=== PATIENT | female | born 1980 | race American Indian/Alaskan Native ===

== ENCOUNTER 2017-02-18 11:58 | Emergency (ER) | payer MEDICAID, OTHER ==
[2017-02-18 11:58] VITALS: BMI 46.0
[2017-02-18 12:15] VITALS: BP 150/88; PULSE 98; RESP 20; TEMP 98.3; O2SAT 100
--- NOTE | 2017-02-18 12:27 | ED PDOC ---
Arrival/HPI - General Chief Complaint: Allergic Reaction Time Seen by Provider: 02/18/17 12:07 Historian: Patient - History of Present Illness Narrative History of Present Illness (Text): you were treated in the ED today for taking hydrochlorothiazide today for the first time and you stated you read somewhere that it has penicillin in it which made you anxious and thus you came to the ED, otherwise you were without any new foods/travel/detergents/antibiotics use/rashes/itching/nausea/vomiting/back of throat swelling/change in voice/drooling/headache/dizziness/difficulty breathing/chest pain/abdomen pain/numbness/tingling/loss of limb function/pain with urination/thoughts to harm yourself or others or hallucinations. 02/18/17 12:19 Past Medical History - Travel History Have you recently traveled outside [place] w/in the past 3 mons?: No - Infectious Disease Hx of Infectious Diseases: None - Tetanus Immunization Tetanus Immunization: Unknown - Reproductive Menopause: No - Past Medical History Past Medical History: No Previous - Cardiac Hx Cardiac Disorders: Yes (Heart Murmur) - Pulmonary Hx Respiratory Disorders: No - Neurological Hx Neurological Disorder: No - HEENT Hx HEENT Disorder: No - Renal Hx Renal Disorder: No - Endocrine/Metabolic Hx Diabetes Mellitus Type 2: Yes - Hematological/Oncological Hx Blood Disorders: No - Integumentary Hx Dermatological Disorder: No - Musculoskeletal/Rheumatological Hx Musculoskeletal Disorders: No - Gastrointestinal Hx Gastrointestinal Disorders: No - Genitourinary/Gynecological Hx Genitourinary Disorders: No - Psychiatric Hx Anxiety: Yes Hx Depression: Yes Hx Substance Use: No - Past Surgical History Past Surgical History: No Previous - Surgical History Hx Section: Yes - Anesthesia Hx Anesthesia: Yes Hx Anesthesia Reactions: No Hx Malignant Hyperthermia: No - Suicidal Assessment Feels Threatened In Home Enviroment: No Family/Social History - Physician Review Nursing Documentation Reviewed: Yes Family/Social History: No Known Family HX Smoking Status: Light Smoker < 10 Cigarettes Daily Hx Alcohol Use: Yes Hx Substance Use: No Hx Substance Use Treatment: No Allergies/Home Meds Allergies/Adverse Reactions: Allergies Penicillins Allergy (Verified 11/14/15 11:54) ANAPHYLAXIS shellfish derived Allergy (Verified 02/18/17 12:12) ANAPHYLAXIS shrimp Allergy (Uncoded 11/14/15 11:54) RASH Home Medications: Home Meds Medication Instructions Recorded Confirmed glyBURIDE [Micronase] 5 mg PO BID 02/11/16 02/11/16 Review of Systems - Review of Systems Constitutional: Normal Eyes: Normal ENT: Normal Respiratory: Normal Cardiovascular: Normal Gastrointestinal: Normal Genitourinary Female: Normal Musculoskeletal: Normal Skin: Normal Neurological: Normal Endocrine: Normal Hemo/Lymphatic: Normal Psychiatric: Anxiety, Other (no suicidal/homicidal/hallucinations) Physical Exam Vital Signs Reviewed: Yes Vital Signs Temp Pulse Resp BP Pulse Ox 02/18/17 12:08 98.3 F 98 H 20 150/88 100 02/18/17 11:58 98.3 F 98 H 20 150/88 100 Temperature: Afebrile Blood Pressure: Hypertensive Pulse: Regular Respiratory Rate: Normal Appearance: Positive for: Well-Appearing, Non-Toxic, Comfortable Pain Distress: None Mental Status: Positive for: Alert and Oriented X 3 - Systems Exam Head: Present: Atraumatic, Normocephalic Pupils: Present: PERRL Extroacular Muscles: Present: EOMI Conjunctiva: Present: Normal Ears: Present: Normal Mouth: Present: Moist Mucous Membranes Pharnyx: Present: Normal Nose (External): Present: Atraumatic Nose (Internal): Present: Normal Inspection Neck: Present: Normal Range of Motion Respiratory/Chest: Present: Clear to Auscultation, Good Air Exchange Cardiovascular: Present: Regular Rate and Rhythm Abdomen: No: Distention, Normal Bowel Sounds, Peritoneal Signs, Rebound, Guarding, McBurney's Point Tender, Rovsing's Sign Present, Hernias, Feeding Tubes, Ostomy Tubes, Mass/Organomegaly, Scars, Other Upper Extremity: Present: Normal Inspection Lower Extremity: Present: Normal Inspection Neurological: Present: GCS=15, CN II-XII Intact, Speech Normal Skin: Present: Warm, Normal Color. No: Dry, Rashes, Diaphoretic, Erythematous, Induration, Hot, Cold, Pale, Laceration, Abscess, Abrasion, Other Psychiatric: Present: Alert, Oriented x 3, Normal Insight, Normal Concentration , Anxious, Other (no suicidal/homicidal/hallucinations) Medical Decision Making ED Course and Treatment: you were treated in the ED today for taking hydrochlorothiazide today for the first time and you stated you read somewhere that it has penicillin in it which made you anxious and thus you came to the ED, otherwise you were without any new foods/travel/detergents/antibiotics use/rashes/itching/nausea/vomiting/back of throat swelling/change in voice/drooling/headache/dizziness/difficulty breathing/chest pain/abdomen pain/numbness/tingling/loss of limb function/pain with urination/thoughts to harm yourself or others or hallucinations. you were smiling and laughing, breathing comfortably, alert/oriented, good strength/ sensation, walking easily, no fever temp 98.3, stable heart rate 98, stable breathing rate 20, excellent oxygen level room air 100, elevated blood pressure 150/88 which we recommend repeat 2-3 days primary care office to determine further treatment, you didn't want to take a test and we cautioned for missed diagnosis but you stated have had your tubes tied, counselled to monitor for any allergic reaction type symptoms such as itching/rashes and discharged home. 1. Recommend if any itching then can start benadryl as directed. 2. Recommend followup primary care 2-3 days, to review your symptoms and medications. 3. if any worsening pain, fever, chills, nausea, vomiting, difficulty breathing, loss of limb function, pain with urination, rashes/hives or any medical condition then return to the ED. 02/18/17 12:29 Reassessment Condition: Re-examined, Improved Disposition/Present on Arrival - Present on Arrival Any Indicators Present on Arrival: No History of DVT/PE: No History of Uncontrolled Diabetes: No Urinary Catheter: No History of Decub. Ulcer: No History Surgical Site Infection Following: None - Disposition Have Diagnosis and Disposition been Completed?: Yes Diagnosis: Anxiety Disposition: HOME/ ROUTINE Disposition Time: 12:30 Patient Plan: Discharge Condition: IMPROVED Additional Instructions: you were treated in the ED today for taking hydrochlorothiazide today for the first time and you stated you read somewhere that it has penicillin in it which made you anxious and thus you came to the ED, otherwise you were without any new foods/travel/detergents/antibiotics use/rashes/itching/nausea/vomiting/back of throat swelling/change in voice/drooling/headache/dizziness/difficulty breathing/chest pain/abdomen pain/numbness/tingling/loss of limb function/pain with urination/thoughts to harm yourself or others or hallucinations. you were smiling and laughing, breathing comfortably, alert/oriented, good strength/ sensation, walking easily, no fever temp 98.3, stable heart rate 98, stable breathing rate 20, excellent oxygen level room air 100, elevated blood pressure 150/88 which we recommend repeat 2-3 days primary care office to determine further treatment, you didn't want to take a test and we cautioned for missed diagnosis but you stated have had your tubes tied, counselled to monitor for any allergic reaction type symptoms such as itching/rashes and discharged home. 1. Recommend if any itching then can start benadryl as directed. 2. Recommend followup primary care 2-3 days, to review your symptoms and medications. 3. if any worsening pain, fever, chills, nausea, vomiting, difficulty breathing, loss of limb function, pain with urination, rashes/hives or any medical condition then return to the ED. Prescriptions: DiphenhydrAMINE [Benadryl] 25 mg PO Q8 PRN #10 cap PRN Reason: rash/itching
== END 2017-02-18 12:49 | disposition home or self-care (01) ==
LOC: ED 11:58
DX: F41.9 Anxiety disorder, unspecified (principal); E11.9 Type 2 diabetes mellitus without complications; F17.210 Nicotine dependence, cigarettes, uncomplicated; Z88.0 Allergy status to penicillin

== ENCOUNTER 2017-04-08 02:14 | Emergency (ER) | payer MEDICAID ==
[2017-04-08 02:15] VITALS: BMI 46.0
[2017-04-08 02:32] VITALS: RESP 18; TEMP 98.1
[2017-04-08] MEDS ORDERED: EPINEPHrine 1 mg/ml (1:1000) Inj SC STA (02:53)
--- NOTE | 2017-04-08 03:34 | ED PDOC ---
Arrival/HPI - General Chief Complaint: Allergic Reaction Time Seen by Provider: 04/08/17 02:47 Historian: Patient - History of Present Illness Narrative History of Present Illness (Text): 04/08/17 02:54 37 year old female, whose past medical history includes anxiety and diabetes, presents to the Emergency department for evaluation following onset of hives and itchiness after exposing herself to shrimp. Patient has a known fish allergy. Patient states she took a few dosage of Benadryl after eating with minimal relief. Patient denies any fevers, chills, chest pain, shortness of breath, abdominal pain, nausea, vomiting, diarrhea, back pain, neck pain, urinary/bowel changes, headache, dizziness, or any other complaint. PMD: Dr. Nicanor Akhtar Symptom Onset: Sudden Symptom Course: Unchanged Activities at Onset: Light Context: Home Past Medical History - Provider Review Nursing Documentation Reviewed: Yes - Infectious Disease Hx of Infectious Diseases: None - Tetanus Immunization Tetanus Immunization: Unknown - Past Medical History Past Medical History: No Previous - Cardiac Hx Cardiac Disorders: Yes (Heart Murmur) - Pulmonary Hx Respiratory Disorders: No - Neurological Hx Neurological Disorder: No - HEENT Hx HEENT Disorder: No - Renal Hx Renal Disorder: No - Endocrine/Metabolic Hx Diabetes Mellitus Type 2: Yes - Hematological/Oncological Hx Blood Disorders: No - Integumentary Hx Dermatological Disorder: No - Musculoskeletal/Rheumatological Hx Musculoskeletal Disorders: No - Gastrointestinal Hx Gastrointestinal Disorders: No - Genitourinary/Gynecological Hx Genitourinary Disorders: No - Psychiatric Hx Anxiety: Yes Hx Depression: Yes Hx Substance Use: No - Past Surgical History Past Surgical History: No Previous - Surgical History Hx Section: Yes - Anesthesia Hx Anesthesia: Yes Hx Anesthesia Reactions: No Hx Malignant Hyperthermia: No - Suicidal Assessment Feels Threatened In Home Enviroment: No Family/Social History - Physician Review Nursing Documentation Reviewed: Yes Family/Social History: No Known Family HX Smoking Status: Light Smoker < 10 Cigarettes Daily Hx Alcohol Use: Yes Hx Substance Use: No Hx Substance Use Treatment: No Allergies/Home Meds Allergies/Adverse Reactions: Allergies Penicillins Allergy (Verified 11/14/15 11:54) ANAPHYLAXIS shellfish derived Allergy (Verified 02/18/17 12:12) ANAPHYLAXIS shrimp Allergy (Uncoded 11/14/15 11:54) RASH Home Medications: Home Meds Medication Instructions Recorded Confirmed glyBURIDE [Micronase] 5 mg PO BID 02/11/16 04/08/17 Review of Systems - Physician Review All systems were reviewed & negative as marked: Yes - Review of Systems Constitutional: absent: Fevers, Other (Chills) Respiratory: absent: SOB Cardiovascular: absent: Chest Pain Gastrointestinal: absent: Abdominal Pain, Diarrhea, Nausea, Vomiting Genitourinary Female: absent: Dysuria, Frequency, Hematuria Musculoskeletal: absent: Back Pain, Neck Pain Skin: Other (hives and itchiness) Neurological: absent: Headache, Dizziness Physical Exam Vital Signs Reviewed: Yes Vital Signs Temp Pulse Resp Pulse Ox 04/08/17 02:25 98.1 F 96 H 18 99 Temperature: Afebrile Pulse: Regular Respiratory Rate: Normal Appearance: Positive for: Well-Appearing, Non-Toxic, Comfortable Pain Distress: None Mental Status: Positive for: Alert and Oriented X 3 - Systems Exam Head: Present: Atraumatic, Normocephalic Pupils: Present: PERRL Extroacular Muscles: Present: EOMI Conjunctiva: Present: Normal Mouth: Present: Moist Mucous Membranes Pharnyx: Present: Normal Neck: Present: Normal Range of Motion Respiratory/Chest: Present: Clear to Auscultation, Good Air Exchange. No: Respiratory Distress, Accessory Muscle Use Cardiovascular: Present: Regular Rate and Rhythm, Normal S1, S2. No: Murmurs Abdomen: Present: Normal Bowel Sounds. No: Tenderness, Distention, Peritoneal Signs Back: Present: Normal Inspection Upper Extremity: Present: Normal Inspection. No: Cyanosis, Edema Lower Extremity: Present: Normal Inspection. No: Edema Neurological: Present: GCS=15, CN II-XII Intact, Speech Normal Skin: Present: Warm, Dry, Other (scattered urticaria areas to the arms, chest, and neck.) Psychiatric: Present: Alert, Oriented x 3, Normal Insight, Normal Concentration Medical Decision Making ED Course and Treatment: 04/08/17 02:54 Impression: 37 year old female presents complaining of hives and itchiness s/p eating shrimp. Patient as a known fish allergy. Plan: -- Epinephrine -- Solu-Medrol -- Reassess and disposition Prior Visits: Notes and results from previous visits were reviewed. Patient was last seen in the emergency department on 02/18/17 presents for taking hydrochlorothiazide today with known Penicillin allergy. Patient was discharged. Progress Notes: 04/08/17 05:00 On re-evaluation, patient presents systematic relief follow by medication given in the Emergency department. I have discussed the results and plan with the patient, who expresses understanding. Patient in agreement with plan to be discharged home. Patient is stable for discharge. Patient was instructed to follow up with physician or return if symptoms worsen or new concerning symptoms arise. - Medication Orders Current Medication Orders: Discontinued Medications Epinephrine HCl (Epinephrine) 0.3 mg SC STAT STA Stop: 04/08/17 02:54 Last Admin: 04/08/17 03:04 Dose: 0.3 mg Subcutaneous Administrations Document 04/08/17 03:04 JOL (Rec: 04/08/17 03:04 JOL [id number]) Injection Site MAR Injection Site Right Arm Charges for Administration # of Subcutaneous Administrations 1 Methylprednisolone (Solu-Medrol) 125 mg IVP ONCE ONE Stop: 04/08/17 02:55 Last Admin: 04/08/17 03:03 Dose: 125 mg IVP Administration Document 04/08/17 03:03 JOL (Rec: 04/08/17 03:04 JOL [id number]) Charges for Administration # of IVP Administrations 1 - Scribe Statement The provider has reviewed the documentation as recorded by the Wilton Temple Provider Scribe Attestation: All medical record entries made by the Scribjamal were at my direction and personally dictated by me. I have reviewed the chart and agree that the record accurately reflects my personal performance of the history, physical exam, medical decision making, and the department course for this patient. I have also personally directed, reviewed, and agree with the discharge instructions and disposition. Disposition/Present on Arrival - Present on Arrival Any Indicators Present on Arrival: No History of DVT/PE: No History of Uncontrolled Diabetes: No Urinary Catheter: No History of Decub. Ulcer: No History Surgical Site Infection Following: None - Disposition Have Diagnosis and Disposition been Completed?: Yes Diagnosis: Allergic reaction, Food allergy Disposition: HOME/ ROUTINE Disposition Time: 04:57 Patient Plan: Discharge Patient Problems: Current Active Problems Problem Status Onset Allergic reaction Acute Food allergy Acute Condition: GOOD Discharge Instructions (ExitCare): Urticaria (ED), Food Allergy (ED) Additional Instructions: Take meds as prescribed/avoid exposure to fish/shellfish /follow up with your doctor this week Prescriptions: DiphenhydrAMINE [Benadryl] 50 mg PO Q6 PRN #24 cap PRN Reason: Itching / Pruritus predniSONE [Prednisone] 40 mg PO DAILY #10 tab Referrals: Lindsay Akhtar MD [Primary Care Provider] - Follow up with primary Forms: [employer] ([place]ian)
[2017-04-08 05:47] VITALS: O2SAT 100
[2017-04-08 05:48] VITALS: BP 132/84; PULSE 80
== END 2017-04-08 05:20 | disposition home or self-care (01) ==
LOC: ED 02:14
DX: L27.2 Dermatitis due to ingested food (principal)
CPT/HCPCS: 96372; 96374; 99284; J0171; J2930

== ENCOUNTER 2017-07-21 20:55 | Emergency (ER) | payer MEDICAID ==
[2017-07-21 21:11] VITALS: O2SAT 100; BMI 44.8
--- NOTE | 2017-07-21 21:50 | ED PDOC ---
Arrival/HPI - General Chief Complaint: Anxiety Time Seen by Provider: 07/21/17 21:08 Historian: Patient - History of Present Illness Narrative History of Present Illness (Text): 07/21/17 21:47 37yo female with PMhx of NIDDM who was bib the EMS for anxiety. Patient report tingling to her right arm, palpation. States she feels "off". she report remote history of similar symptoms with her previous anxiety episodes. states she have not taken anxiolytics for a while, because she didn't need it. She notes that she is currently under severe stress. States she her friends lost loved ones this week and she score a B in her school, exam, which made her unhappy. she however denies chest pain, SOB, diaphoresis, LE edema, calf pain, dizziness, focal weakness, headache, slurred speech, SI/HI, hallucination, any other complaint. Past Medical History - Provider Review Nursing Documentation Reviewed: Yes - Infectious Disease Hx of Infectious Diseases: None - Tetanus Immunization Tetanus Immunization: Unknown - Past Medical History Past Medical History: No Previous - Cardiac Hx Cardiac Disorders: Yes (Heart Murmur) - Pulmonary Hx Respiratory Disorders: No - Neurological Hx Neurological Disorder: No - HEENT Hx HEENT Disorder: No - Renal Hx Renal Disorder: No - Endocrine/Metabolic Hx Diabetes Mellitus Type 2: Yes - Hematological/Oncological Hx Blood Disorders: No - Integumentary Hx Dermatological Disorder: No - Musculoskeletal/Rheumatological Hx Musculoskeletal Disorders: No - Gastrointestinal Hx Gastrointestinal Disorders: No - Genitourinary/Gynecological Hx Genitourinary Disorders: No - Psychiatric Hx Anxiety: Yes Hx Depression: Yes Hx Substance Use: No - Past Surgical History Past Surgical History: No Previous - Surgical History Hx Section: Yes - Anesthesia Hx Anesthesia: Yes Hx Anesthesia Reactions: No Hx Malignant Hyperthermia: No - Suicidal Assessment Feels Threatened In Home Enviroment: No Family/Social History - Physician Review Nursing Documentation Reviewed: Yes Family/Social History: Unknown Family HX Smoking Status: Light Smoker < 10 Cigarettes Daily Hx Alcohol Use: Yes Hx Substance Use: No Hx Substance Use Treatment: No Allergies/Home Meds Allergies/Adverse Reactions: Allergies Penicillins Allergy (Verified 07/21/17 20:57) ANAPHYLAXIS shellfish derived Allergy (Verified 07/21/17 20:57) ANAPHYLAXIS shrimp Allergy (Uncoded 07/21/17 20:57) RASH Home Medications: Home Meds Medication Instructions Recorded Confirmed glyBURIDE [Micronase] 5 mg PO DAILY 07/21/17 07/21/17 metFORMIN [glucOPHAGE] 500 mg PO DAILY 07/21/17 07/21/17 Review of Systems - Physician Review All systems were reviewed & negative as marked: Yes - Review of Systems Constitutional: Normal Eyes: Normal ENT: Normal Respiratory: Normal Cardiovascular: Normal Gastrointestinal: Normal Genitourinary Female: Normal Musculoskeletal: Normal Skin: Normal Neurological: Normal Endocrine: Normal Hemo/Lymphatic: Normal Psychiatric: Anxiety. absent: Depression, Suicidal Ideation Physical Exam Vital Signs Reviewed: Yes Vital Signs Temp Pulse Resp BP Pulse Ox 07/21/17 21:05 98.6 F 94 H 18 148/89 100 Temperature: Afebrile Blood Pressure: Normal Pulse: Regular Respiratory Rate: Normal Appearance: Positive for: Well-Appearing, Non-Toxic, Comfortable, Other (Morbid obese) Pain Distress: None Mental Status: Positive for: Alert and Oriented X 3 - Systems Exam Head: Present: Atraumatic, Normocephalic Pupils: Present: PERRL Extroacular Muscles: Present: EOMI Conjunctiva: Present: Normal Mouth: Present: Moist Mucous Membranes Neck: Present: Normal Range of Motion Respiratory/Chest: Present: Clear to Auscultation, Good Air Exchange. No: Respiratory Distress, Accessory Muscle Use Cardiovascular: Present: Regular Rate and Rhythm, Normal S1, S2. No: Murmurs Abdomen: No: Tenderness, Distention, Peritoneal Signs Back: Present: Normal Inspection Upper Extremity: Present: Normal Inspection. No: Cyanosis, Edema Lower Extremity: Present: Normal Inspection. No: Edema Neurological: Present: GCS=15, CN II-XII Intact, Speech Normal Skin: Present: Warm, Dry, Normal Color. No: Rashes Psychiatric: Present: Alert, Oriented x 3, Normal Insight, Normal Concentration Medical Decision Making ED Course and Treatment: 07/21/17 23:45 Pt in ED for anxiety. Labs was ordered and reviewed. BS of 310 was noted. No AG. Pt noted that she is not complaint with her medication. States the last time she took her oral hypoglycemics was a week ago. She denies polyuria/dipsia/phagia, dizziness, nausea, vomiting, abdominal pain in ED. Her BS improved to 200 on re evaluation after hydration and insulin was given. She also states her anxiety symptoms resolved with Xanax in ED. EKG NSR @95bpm. CXR NAD Result was DW the pt. and she was strongly advised to take medication as was directed. Referred to her PMD. - Lab Interpretations Lab Results: 07/21/17 21:51 07/21/17 21:51 Lab Results 07/21/17 23:28: POC Glucose (mg/dL) 200 H 07/21/17 21:51: PT 11.4, INR 1.00, APTT 27.1 07/21/17 21:51: Sodium 142, Potassium 3.9, Chloride 104, Carbon Dioxide 26, Anion Gap 16, BUN 11, Creatinine 0.5 L, Est GFR ( Amer) > 60, Est GFR ( Non-Af Amer) > 60, Random Glucose 310 H* D, Calcium 9.4, Magnesium 1.9, Total Bilirubin 0.3, AST 24, ALT 25, Alkaline Phosphatase 92, Lactate Dehydrogenase 413, Total Creatine Kinase 132, Troponin I < 0.01, Total Protein 7.7, Albumin 4.4, Globulin 3.2, Albumin/Globulin Ratio 1.4 07/21/17 21:51: Urine Color Yellow, Urine Appearance Clear, Urine pH 6.0, Ur Specific Sims 1.025, Urine Protein Negative, Urine Glucose (UA) >=1000, Urine Ketones Negative, Urine Blood Negative, Urine Nitrate Negative, Urine Bilirubin Negative, Urine Urobilinogen 0.2, Ur Leukocyte Esterase Negative 07/21/17 21:51: WBC 5.2 D, RBC 5.11, Hgb 12.9, Hct 39.5, MCV 77.3 L, MCH 25.2, MCHC 32.7, RDW 16.4 H, Plt Count 324, MPV 9.5, Gran % 43.9 L, Lymph % (Auto) 45.7 H, Frio % (Auto) 7.3 H, Eos % (Auto) 2.7, Baso % (Auto) 0.4, Gran # 2.28, Lymph # (Auto) 2.4, Frio # (Auto) 0.4, Eos # (Auto) 0.1, Baso # (Auto) 0.02 - RAD Interpretation Radiology Orders: 07/21/17 21:24 CHEST PORTABLE [RAD] Stat - Medication Orders Current Medication Orders: Discontinued Medications Alprazolam (Xanax) 0.25 mg PO STAT STA PRN Reason: Protocol Stop: 07/21/17 22:05 Last Admin: 07/21/17 22:12 Dose: 0.25 mg Sodium Chloride (Sodium Chloride 0.9%) 1,000 mls @ 999 mls/hr IV .Q1H1M STA Stop: 07/21/17 23:20 Last Admin: 07/21/17 22:29 Dose: 999 mls/hr eMAR Start Stop Document 07/21/17 22:29 IT (Rec: 07/21/17 22:30 IT [id number]) Intravenous Solution Start Date 07/21/17 Start Time 22:30 End Date 07/21/17 Insulin Human Regular (Humulin R) 6 units IVP ONCE STA Stop: 07/21/17 22:21 Last Admin: 07/21/17 22:29 Dose: 6 units MAR Blood Glucose Document 07/21/17 22:29 IT (Rec: 07/21/17 22:29 IT [id number]) Blood Glucose Finger Stick Blood Glucose (70-120) 310 IVP Administration Document 07/21/17 22:29 IT (Rec: 07/21/17 22:29 IT [id number]) Charges for Administration # of IVP Administrations 1 Disposition/Present on Arrival - Present on Arrival Any Indicators Present on Arrival: No History of DVT/PE: No History of Uncontrolled Diabetes: No Urinary Catheter: No History of Decub. Ulcer: No History Surgical Site Infection Following: None - Disposition Have Diagnosis and Disposition been Completed?: Yes Diagnosis: Anxiety, Hyperglycemia Disposition: HOME/ ROUTINE Disposition Time: 23:35 Patient Plan: Discharge Patient Problems: Current Active Problems Problem Status Onset Anxiety Acute Hyperglycemia Acute Condition: STABLE Discharge Instructions (ExitCare): Hyperglycemia, Adult, Anxiety, Adult (DC) Additional Instructions: Follow up with your Doctor Take your diabetes medication as directed Return to ED for any new or worsening symptoms Referrals: Shira Garnett, [Primary Care Provider] - Follow up with primary [facility] [place] [Outside] - Follow up with primary Forms: [employer] (Maldivian)
[2017-07-21 21:54] LABS: URINE BILIRUBIN NEGATIVE (NEGATIVE); URINE BLOOD NEGATIVE (NEGATIVE); URINE GLUCOSE (UA) >=1000 mg/dL (NEGATIVE); URINE LEUKOCYTE ESTERASE NEGATIVE Leu/uL (NEGATIVE); URINE PROTEIN NEGATIVE mg/dL (<30 mg/dL); URINE UROBILINOGEN 0.2 E.U./dL (<1 E.U./dL)
[2017-07-21 22:06] LABS: BASO # 0.02 K/mm3 (0.0-2.0); BASO % 0.4 % (0.0-3.0); EOS # 0.1 (0.0-0.7); EOS % 2.7 % (1.5-5.0); GRAN # 2.28 (1.4-6.5); GRAN % 43.9 % (50.0-68.0); HEMOGLOBIN 12.9 g/dL (12.0-16.0); LYMPH # 2.4 (1.2-3.4); LYMPH % 45.7 % (22.0-35.0); MEAN CELL VOLUME 77.3 fl (80.0-105.0); MEAN CORPUSCULAR HEMOGLOBIN 25.2 pg (25.0-35.0); MEAN CORPUSCULAR HGB CONC 32.7 g/dl (31.0-37.0); MEAN PLATELET VOLUME 9.5 fl (7.0-11.0); MONO # 0.4 (0.1-0.6); MONO % 7.3 % (1.0-6.0); RBC 5.11 10^6/uL (3.5-6.1); RED CELL DISTRIBUTION WIDTH 16.4 % (11.5-14.5); WHITE BLOOD COUNT 5.2 10^3/ul (4.5-11.0)
[2017-07-21 22:09] LABS: URINE APPEARANCE CLEAR (CLEAR); URINE COLOR YELLOW (YELLOW)
[2017-07-21 22:11] LABS: PARTIAL THROMBOPLASTIN TIME 27.1 Seconds (25.1-36.5); PROTHROMBIN TIME 11.4 SECONDS (9.4-12.5)
[2017-07-21 22:16] LABS: TROPONIN I < 0.01 ng/mL
[2017-07-21 22:19] LABS: ALB/GLOB RATIO 1.4 (1.1-1.8); ALBUMIN 4.4 g/dL (3.0-4.8); ALT/SGPT 25 U/L (7-56); AST/SGOT 24 U/L (14-36); BLOOD UREA NITROGEN 11 mg/dL (7-21); CALCIUM 9.4 mg/dL (8.4-10.5); GFR AFRICAN-AMERICAN > 60; GFR NON-AFRICAN AMERICAN > 60
[2017-07-21] MEDS ORDERED: Insulin Regular 1 UNITS/0.01 ML ML IVP STA (22:20)
[2017-07-21] MEDS ORDERED: Sodium Chloride 0.9% 1,000 ML IV STA (22:20)
[2017-07-22 00:12] VITALS: BP 129/79; PULSE 82; RESP 17; TEMP 98.1
--- NOTE | 2017-07-22 08:58 | RAD ---
HISTORY: palpitation COMPARISON: 05/11/2014 FINDINGS: LUNGS: No active pulmonary disease. PLEURA: No significant pleural effusion identified, no pneumothorax apparent. CARDIOVASCULAR: Normal. OSSEOUS STRUCTURES: No significant abnormalities. VISUALIZED UPPER ABDOMEN: Normal. OTHER FINDINGS: None. IMPRESSION: No active disease.
--- NOTE | 2017-07-22 09:50 | CARD ---
APPROVED REPORT EKG Measurement Heart [id number] <Conclusion> Normal sinus rhythm PRWP NSSTW changes No change
== END 2017-07-21 23:55 | disposition home or self-care (01) ==
LOC: ED 20:55
DX: F41.9 Anxiety disorder, unspecified (principal); E11.65 Type 2 diabetes mellitus with hyperglycemia; F17.210 Nicotine dependence, cigarettes, uncomplicated
CPT/HCPCS: 71045; 80053; 81003; 82550; 82948; 83615; 83735; 84484; 85025; 85610; 85730; 93005; 96374; 99283; J7040

== ENCOUNTER 2017-11-03 18:09 | Emergency (ER) | payer MEDICAID ==
[2017-11-03 18:10] VITALS: BMI 46.0
[2017-11-03 18:27] VITALS: RESP 18; O2SAT 99
[2017-11-03] MEDS ORDERED: Apap-Butalbital-Caffeine 325-50-40mg Tab PO STA (18:37)
--- NOTE | 2017-11-03 18:40 | ED PDOC ---
Arrival/HPI - General Chief Complaint: Headache Time Seen by Provider: 11/03/17 18:15 Historian: Patient - History of Present Illness Narrative History of Present Illness (Text): 11/03/17 18:39 37 year old female, whose past medical history includes anxiety and diabetes, presents to the Emergency department for evaluation of headache. Patient states she has a pressure headache running down the front of her face. Patient also states her nose and body feel sore. Patient denies any fever, chills, dizziness, chest pain, shortness of breath, cough, abdominal pain, nausea, vomiting, diarrhea, back pain, neck pain, urinary/bowel changes, or any other complaint. Time/Duration: Prior to Arrival Symptom Course: Unchanged Quality: Pressure Past Medical History - Provider Review Nursing Documentation Reviewed: Yes - Infectious Disease Hx of Infectious Diseases: None - Tetanus Immunization Tetanus Immunization: Unknown - Past Medical History Past Medical History: No Previous - Cardiac Hx Cardiac Disorders: Yes Hx Heart Murmur: Yes - Pulmonary Hx Respiratory Disorders: No - Neurological Hx Neurological Disorder: No - HEENT Hx HEENT Disorder: No - Renal Hx Renal Disorder: No - Endocrine/Metabolic Hx Diabetes Mellitus Type 2: Yes - Hematological/Oncological Hx Blood Disorders: No - Integumentary Hx Dermatological Disorder: No - Musculoskeletal/Rheumatological Hx Musculoskeletal Disorders: No - Gastrointestinal Hx Gastrointestinal Disorders: No - Genitourinary/Gynecological Hx Genitourinary Disorders: No - Psychiatric Hx Anxiety: Yes Hx Depression: Yes Hx Substance Use: No - Past Surgical History Past Surgical History: No Previous - Surgical History Hx Section: Yes (x1) - Anesthesia Hx Anesthesia: Yes Hx Anesthesia Reactions: No Hx Malignant Hyperthermia: No - Suicidal Assessment Feels Threatened In Home Enviroment: No Family/Social History - Physician Review Nursing Documentation Reviewed: Yes Family/Social History: No Known Family HX Smoking Status: Light Smoker < 10 Cigarettes Daily Hx Alcohol Use: Yes Hx Substance Use: No Hx Substance Use Treatment: No Allergies/Home Meds Allergies/Adverse Reactions: Allergies Penicillins Allergy (Verified 11/03/17 18:28) ANAPHYLAXIS shellfish derived Allergy (Verified 11/03/17 18:28) ANAPHYLAXIS shrimp Allergy (Uncoded 11/03/17 18:28) RASH Home Medications: Home Meds Medication Instructions Recorded Confirmed glyBURIDE [Micronase] 5 mg PO DAILY 07/21/17 11/03/17 metFORMIN [glucOPHAGE] 500 mg PO DAILY 07/21/17 11/03/17 Review of Systems - Physician Review All systems were reviewed & negative as marked: Yes - Review of Systems Constitutional: Normal. absent: Fevers, Night Sweats Eyes: Normal ENT: Normal Respiratory: Normal. absent: SOB, Cough Cardiovascular: Normal. absent: Chest Pain Gastrointestinal: Normal. absent: Abdominal Pain, Diarrhea, Nausea, Vomiting Genitourinary Female: Normal. absent: Urine Output Changes Musculoskeletal: Normal. absent: Back Pain, Neck Pain Skin: Normal Neurological: Headache. absent: Dizziness Endocrine: Normal Hemo/Lymphatic: Normal Psychiatric: Normal Physical Exam Vital Signs Reviewed: Yes Vital Signs Temp Pulse Resp BP Pulse Ox 11/03/17 18:57 98.3 F 78 18 120/79 99 11/03/17 18:27 97.8 F 85 18 140/77 99 Temperature: Afebrile Blood Pressure: Normal Pulse: Regular Respiratory Rate: Normal Appearance: Positive for: Well-Appearing, Non-Toxic, Comfortable Pain Distress: None Mental Status: Positive for: Alert and Oriented X 3 - Systems Exam Head: Present: Atraumatic, Normocephalic Pupils: Present: PERRL Extroacular Muscles: Present: EOMI Conjunctiva: Present: Normal Mouth: Present: Moist Mucous Membranes Neck: Present: Normal Range of Motion Respiratory/Chest: Present: Clear to Auscultation, Good Air Exchange. No: Respiratory Distress, Accessory Muscle Use Cardiovascular: Present: Regular Rate and Rhythm, Normal S1, S2. No: Murmurs Abdomen: No: Tenderness, Distention, Peritoneal Signs Back: Present: Normal Inspection Upper Extremity: Present: Normal Inspection. No: Cyanosis, Edema Lower Extremity: Present: Normal Inspection. No: Edema Neurological: Present: GCS=15, CN II-XII Intact, Speech Normal Skin: Present: Warm, Dry, Normal Color. No: Rashes Psychiatric: Present: Alert, Oriented x 3, Normal Insight, Normal Concentration Medical Decision Making ED Course and Treatment: 11/03/17 18:41 Impression: 37 year old female presents to the emergency department with headache. Plan: -- Fioricet -- Labs -- Reassess and disposition Prior Visits: Notes and results from previous visits were reviewed. Progress Notes: 11/03/17 18:42 Patient was offered lab tests and imaging. Patient declined, stating she wants to take child home. 11/04/17 07:25 no thunderclap featuress, pt well appearing neuro intact. suspect sinus hernandez. declines imaging w/u in er due to child care giver reuqests rx and dc home. return precations advised. - Medication Orders Current Medication Orders: Discontinued Medications Acetaminophen/Butalbital/Caffeine (Fioricet) 1 tab PO STAT STA Stop: 11/03/17 18:38 Last Admin: 11/03/17 18:49 Dose: 1 tab MAR Pain Assessment Document 11/03/17 18:49 EWO (Rec: 11/03/17 18:50 EWO [id number]) Pain Reassessment Is this a pain reassessment? No Sleep Is patient sleeping during reassessment? 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 I have reviewed the chart and agree that the record accurately reflects my personal performance of the history, physical exam, medical decision making, and the department course for this patient. I have also personally directed, reviewed, and agree with the discharge instructions and disposition. Disposition/Present on Arrival - Present on Arrival Any Indicators Present on Arrival: No History of DVT/PE: No History of Uncontrolled Diabetes: No Urinary Catheter: No History of Decub. Ulcer: No History Surgical Site Infection Following: None - Disposition Have Diagnosis and Disposition been Completed?: Yes Diagnosis: Headache, Sinus congestion Disposition: HOME/ ROUTINE Disposition Time: 06:00 Condition: STABLE Discharge Instructions (ExitCare): Sinus Headache (DC), Headache, Adult (DC) Additional Instructions: you are declining lab eval and imaging. you are able to return to er with worsening symptoms or concerns Prescriptions: Acetaminophen/Butalbital/Caf [Fioricet] 1 tab PO Q8 PRN #20 tab PRN Reason: Headache Fluticasone Propionate [Flonase] 1 spr OMAYRA DAILY #1 bottle Referrals: Lindsay Akhtar MD [Primary Care Provider] - Follow up with primary Forms: [employer] (Bengali)
[2017-11-03 18:57] VITALS: BP 120/79; PULSE 78; TEMP 98.3
== END 2017-11-03 18:57 | disposition home or self-care (01) ==
LOC: ED 18:09
DX: R51 Headache (principal); R09.81 Nasal congestion; E11.9 Type 2 diabetes mellitus without complications; F17.210 Nicotine dependence, cigarettes, uncomplicated

== ENCOUNTER 2018-04-03 13:33 | Emergency (ER) | payer MEDICAID ==
[2018-04-03 13:52] VITALS: BMI 40.4
[2018-04-03 13:56] VITALS: TEMP 98.7
[2018-04-03 14:47] LABS: BASO # 0.02 K/mm3 (0.0-2.0); BASO % 0.4 % (0.0-3.0); EOS # 0.1 (0.0-0.7); EOS % 1.8 % (1.5-5.0); GRAN # 2.87 (1.4-6.5); GRAN % 50.3 % (50.0-68.0); HEMOGLOBIN 11.9 g/dL (12.0-16.0); LYMPH # 2.4 (1.2-3.4); LYMPH % 42.2 % (22.0-35.0); MEAN CELL VOLUME 79.8 fl (80.0-105.0); MEAN CORPUSCULAR HEMOGLOBIN 25.8 pg (25.0-35.0); MEAN CORPUSCULAR HGB CONC 32.3 g/dl (31.0-37.0); MEAN PLATELET VOLUME 9.3 fl (7.0-11.0); MONO # 0.3 (0.1-0.6); MONO % 5.3 % (1.0-6.0); RBC 4.61 10^6/uL (3.5-6.1); RED CELL DISTRIBUTION WIDTH 14.7 % (11.5-14.5); WHITE BLOOD COUNT 5.7 10^3/uL (4.5-11.0)
[2018-04-03 14:50] LABS: ALB/GLOB RATIO 1.1 (1.1-1.8); ALBUMIN 4.2 g/dL (3.0-4.8); BLOOD UREA NITROGEN 8 mg/dL (7-21); CALCIUM 9.1 mg/dL (8.4-10.5); GFR NON-AFRICAN AMERICAN > 60
[2018-04-03 15:00] LABS: TROPONIN I < 0.01 ng/mL
[2018-04-03 15:07] LABS: INR 1.2; PROTHROMBIN TIME 13.3 SECONDS (9.4-12.5)
[2018-04-03 15:15] LABS: ALT/SGPT 37 U/L (7-56); AST/SGOT 31 U/L (14-36)
--- NOTE | 2018-04-03 15:19 | ED PDOC ---
Arrival/HPI - General Chief Complaint: Chest Pain Time Seen by Provider: 04/03/18 13:36 Historian: Patient - History of Present Illness Narrative History of Present Illness (Text): 04/03/18 13:52 38 year old female, whose past medical history includes type 2 diabetes, anxiety, heart murmur who presents to the emergency department complaining of chest pain for the past 2days, worse today. Patient reports she sleeps with her 1 year old son and , noting the pain may be due to an uncomfortable sleeping position. Patient states her chest pain worsens with movement and when lifting left arm up. Patient denies any recent trauma, palpitations, fevers, abdominal pain, leg swelling, or any other complaints. Patient states she is a smoker. PMD: Lindsay Burt Time/Duration: > week (pt notes onset as past 2 days) Symptom Onset: Sudden Symptom Course: Unchanged Activities at Onset: Light Past Medical History - Provider Review Nursing Documentation Reviewed: Yes - Infectious Disease Hx of Infectious Diseases: None - Tetanus Immunization Tetanus Immunization: Unknown - Past Medical History Past Medical History: No Previous - Cardiac Hx Cardiac Disorders: Yes Hx Heart Murmur: Yes - Pulmonary Hx Respiratory Disorders: No - Neurological Hx Neurological Disorder: No - HEENT Hx HEENT Disorder: No - Renal Hx Renal Disorder: No - Endocrine/Metabolic Hx Diabetes Mellitus Type 2: Yes - Hematological/Oncological Hx Blood Disorders: No - Integumentary Hx Dermatological Disorder: No - Musculoskeletal/Rheumatological Hx Musculoskeletal Disorders: No - Gastrointestinal Hx Gastrointestinal Disorders: No - Genitourinary/Gynecological Hx Genitourinary Disorders: No - Psychiatric Hx Anxiety: Yes Hx Depression: Yes Hx Substance Use: No - Past Surgical History Past Surgical History: No Previous - Surgical History Hx Section: Yes (x1) - Anesthesia Hx Anesthesia: Yes Hx Anesthesia Reactions: No Hx Malignant Hyperthermia: No - Suicidal Assessment Feels Threatened In Home Enviroment: No Family/Social History - Physician Review Nursing Documentation Reviewed: Yes Family/Social History: No Known Family HX Smoking Status: Current Some Days Smoker Hx Alcohol Use: Yes Frequency of alcohol use: Socially Hx Substance Use: No Hx Substance Use Treatment: No Allergies/Home Meds Allergies/Adverse Reactions: Allergies Penicillins Allergy (Verified 11/03/17 18:28) ANAPHYLAXIS shellfish derived Allergy (Verified 11/03/17 18:28) ANAPHYLAXIS shrimp Allergy (Uncoded 11/03/17 18:28) RASH Home Medications: Home Meds Medication Instructions Recorded Confirmed RX: glyBURIDE [Micronase] 5 mg PO DAILY 07/21/17 11/03/17 RX: metFORMIN [glucOPHAGE] 500 mg PO DAILY 07/21/17 11/03/17 Review of Systems - Review of Systems Constitutional: Normal. absent: Fevers ENT: absent: Hearing Changes Respiratory: absent: SOB, Cough, Sputum, Wheezing Cardiovascular: Chest Pain (pt notes chest pain for past 2 days ). absent: Normal, Palpitations, Edema, Calf Pain, BECERRA, Orthopnea, Syncope Gastrointestinal: Normal. absent: Abdominal Pain, Constipation, Diarrhea, Nausea, Vomiting Genitourinary Female: absent: Dysuria Skin: absent: Rash Psychiatric: absent: Anxiety, Depression Physical Exam Vital Signs Reviewed: Yes Vital Signs Temp Pulse Resp BP Pulse Ox 04/03/18 13:57 130/73 04/03/18 13:35 98.7 F 84 20 100 Temperature: Afebrile Blood Pressure: Normal Pulse: Regular Respiratory Rate: Normal Appearance: Positive for: Well-Appearing, Non-Toxic, Comfortable Pain Distress: Mild Mental Status: Positive for: Alert and Oriented X 3 - Systems Exam Head: Present: Atraumatic, Normocephalic Pupils: Present: PERRL Extroacular Muscles: Present: EOMI Conjunctiva: Present: Normal Mouth: Present: Moist Mucous Membranes Neck: Present: Normal Range of Motion Respiratory/Chest: Present: Clear to Auscultation, Good Air Exchange. No: Respiratory Distress, Accessory Muscle Use Cardiovascular: Present: Regular Rate and Rhythm, Normal S1, S2. No: Murmurs Abdomen: No: Tenderness, Distention, Peritoneal Signs Back: Present: Normal Inspection Upper Extremity: Present: Normal Inspection. No: Cyanosis, Edema Lower Extremity: Present: Normal Inspection. No: Edema Neurological: Present: GCS=15, CN II-XII Intact, Speech Normal Skin: Present: Warm, Dry, Normal Color. No: Rashes Psychiatric: Present: Alert, Oriented x 3, Normal Insight, Normal Concentration Medical Decision Making ED Course and Treatment: 04/03/18 13:52 Impression: 38 year old female presents to the emergency department for chest pain for the past 2 days, worse today Plan: -- EKG -- Labs -- X-Ray of chest -- Toradol -- POC Urine Test -- Reassess and disposition Prior Visits: Notes and results from previous visits were reviewed. Patient was last seen in the emergency department on 11/03/17 for evaluation of headache. Patient was discharged home in stable condition, with diagnosis of headache and sinus congestion, and prescribed Fioricet and Flonase. Progress Notes: 04/03/18 15:44 EKG shows NSR at 89bpm with normal intervals and no ST changes. Cxray negative. D-dimer and troponin negative. Instructed on importance of following up with PMD. 04/03/18 19:38 - Lab Interpretations Lab Results: PT 13.3 SECONDS (9.4-12.5) H 04/03/18 14:30 INR 1.20 04/03/18 14:30 APTT 31.0 Seconds (26.9-38.3) 04/03/18 14:30 D-Dimer, Quantitative 206 ng/mlDDU (0-243) 04/03/18 14:30 Troponin I < 0.01 ng/mL 04/03/18 14:30 Total Bilirubin 0.4 mg/dL (0.2-1.3) 04/03/18 14:30 Total Protein 7.9 g/dL (5.8-8.3) 04/03/18 14:30 Albumin 4.2 g/dL (3.0-4.8) 04/03/18 14:30 Globulin 3.7 gm/dL 04/03/18 14:30 Albumin/Globulin Ratio 1.1 (1.1-1.8) 04/03/18 14:30 - RAD Interpretation Radiology Orders: 04/03/18 14:04 CHEST PORTABLE [RAD] Stat - Medication Orders Current Medication Orders: Discontinued Medications Ketorolac Tromethamine (Toradol) 30 mg IM STAT STA Stop: 04/03/18 14:05 Last Admin: 04/03/18 14:28 Dose: 30 mg EZIO Pain Assessment Document 04/03/18 14:28 SRE (Rec: 04/03/18 14:28 SRE [id number]) Pain Reassessment Is this a pain reassessment? Yes Sleep Is patient sleeping during reassessment? No Presence of Pain Presence of Pain Yes Pain Scale Used Protocol: PSCALES Pain Scale Used Numeric Location Pain Location Body Site Chest Description Description Intermittent IM Administration Charges Document 04/03/18 14:28 SRE (Rec: 04/03/18 14:28 SRE [id number]) Charges for Administration # of IM Administrations 1 - Scribe Statement The provider has reviewed the documentation as recorded by the Scribe Siri Smiley All medical record entries made by the Scribe were at my direction and personally dictated by me. I have reviewed the chart and agree that the record accurately reflects my personal performance of the history, physical exam, medical decision making, and the department course for this patient. I have also personally directed, reviewed, and agree with the discharge instructions and di sposition. Disposition/Present on Arrival - Present on Arrival Any Indicators Present on Arrival: No History of DVT/PE: No History of Uncontrolled Diabetes: No Urinary Catheter: No History of Decub. Ulcer: No History Surgical Site Infection Following: None - Disposition Have Diagnosis and Disposition been Completed?: Yes Diagnosis: Atypical chest pain, Costochondritis Disposition: HOME/ ROUTINE Disposition Time: 16:28 Patient Plan: Discharge Condition: GOOD Discharge Instructions (ExitCare): Costochondritis, Chest Pain That Is Not Caused by the Heart (DC) Additional Instructions: Follow-up with PMD within 2 days. Return to emergency department if condition worsens. Forms: [facility] (Irish), WORK NOTE
[2018-04-03 16:17] VITALS: BP 135/76; PULSE 75; RESP 18; O2SAT 99
--- NOTE | 2018-04-03 17:07 | RAD ---
Date of service: 04/03/2018 HISTORY: chest pain COMPARISON: Chest radiograph dated 07/21/2017. FINDINGS: LUNGS: No active pulmonary disease. PLEURA: No significant pleural effusion identified, no pneumothorax apparent. CARDIOVASCULAR: No aortic atherosclerotic calcification present. Normal cardiac size. No pulmonary vascular congestion. OSSEOUS STRUCTURES: No significant abnormalities. VISUALIZED UPPER ABDOMEN: Normal. OTHER FINDINGS: None. IMPRESSION: No active disease.
--- NOTE | 2018-04-03 22:59 | CARD ---
APPROVED REPORT Date of service: 04/03/2018 EKG Measurement Heart [id number] <Conclusion> Normal sinus rhythm Poor R wave progression V1-3. NDSTT abnormaklities Borderline EKG
== END 2018-04-03 16:50 | disposition home or self-care (01) ==
LOC: ED 13:33
DX: M94.0 Chondrocostal junction syndrome [Tietze] (principal); E11.9 Type 2 diabetes mellitus without complications; R01.1 Cardiac murmur, unspecified
CPT/HCPCS: 71045; 80053; 81025; 82550; 82948; 84484; 85025; 85378; 85610; 85730; 93005; 96372; 99284; J1885